=== PATIENT | male | born 1960 | race Caucasian/White ===

== ENCOUNTER 2017-03-03 15:29 | Emergency (ER) | payer SELFPAY ==
[2017-03-03 18:03] LABS: Basophils % (Auto) 0.6 % (0.0-1.8); Eosinophils % (Auto) 1.6 % (0.0-4.3); Hematocrit 41.2 % (35.5-45.6); Hemoglobin 13.6 gm/dl (11.8-15.2); Mean Corpuscular HGB Conc 33 % (32-34); Mean Corpuscular Hemoglobin 29 pg (28-32); Mean Corpuscular Volume 86 fl (84-94); Platelet Count 157 K/mm3 (140-440); Red Blood Count 4.78 M/mm3 (3.65-5.03); Red Cell Distribution Width 16.1 % (13.2-15.2)
[2017-03-03 18:13] LABS: INR 2.37 (0.87-1.13)
[2017-03-03 18:14] LABS: Partial Thromboplastin Time 41.3 Sec. (24.2-36.6)
--- NOTE | 2017-03-03 18:56 | Emergency Department Report ---
Entered by RASHEEDA GILLESPIE, acting as scribe for JOSE L ZAMAN PA. Chief Complaint: Extremity Injury, Lower Stated Complaint: LEFT FOOT SWELLING Time Seen by Provider: 03/03/17 16:58 - HPI History of Present Illness: 57 y/o male with PMHx of DM, HTN, and bilateral DVT, presents to the ED c/o left foot and ankle swelling beginning 3 days ago. The swelling has improved since the initial onset. Associated symptoms of SOB 3 days ago that has since resolved, but he denies nausea and vomiting. The patient was seen at [facility] last month for DVT and PE and was prescribed coumadin. Patient is compliant with coumadin, HTN, and DM medications. Patient states he took his morning dosage of HTN medication but has not taken his afternoon dosage. No other complaints. - ROS Review of Systems: Musculoskeletal/Extremities: Positive for Left lower extremity swelling and pain RESP: positive for SOB 3 days ago that has since resolved ABD: negative for nausea, vomiting SKIN: Positive for swelling of the left foot and left lower extremity All other systems reviewed and negative - Exam Vital Signs: Vital Signs 03/03/17 15:57 Temperature 98.4 F Pulse Rate 84 Respiratory 20 Rate Blood Pressure 155/107 O2 Sat by Pulse 97 Oximetry Physical Exam: Constitutional: Non toxic appearing, NAD. Cardiovascular: Normal rate and rhythm with normal S1/S2 sounds. 3+ edema to the left lower extremity. Respiratory: No respiratory distress. Lung sounds clear to auscultation bilaterally. Musculoskeletal/Extremities: left lower extremity is hard and taut. No calf tenderness. 2+ left DP. Left Foot had 3+ pitting edema MSE screening note: Focused history and physical exam performed. Due to findings the following was ordered: ED Medical Decision Making - Medical Decision Making alert and oriented x3. LE US ordered. Patient will be seen by ED physician. Patient is in no acute distress, stable. ED Disposition for MSE Condition: Stable Referrals: PRIMARY CARE,MD [Primary Care Provider] - 3-5 Days This documentation as recorded by the scribe,RASHEEDA GILLESPIE,accurately reflects the service I personally performed and the decisions made by AUSTYN nunez OYINLOLA A, PA.
[2017-03-04] MEDS ORDERED: TYLENOL #3 PO ONE (00:20)
--- NOTE | 2017-03-04 00:22 | Emergency Department Report ---
ED General Adult HPI - General Chief complaint: Extremity Injury, Lower Stated complaint: LEFT FOOT SWELLING Time Seen by Provider: 03/03/17 17:18 Source: patient, RN notes reviewed, old records reviewed Mode of arrival: Ambulatory Limitations: No Limitations - History of Present Illness Initial comments: This is a 57-year-old male. He is previously unknown to me. His primary care doctor is Dr. Dukes The patient has a past medical history of DVT, for which he takes Coumadin therapy. The DVT was diagnosed last month at [facility] Patient had a CT scan of the chest performed on February 04, which was negative for pulmonary embolus. The patient also had a 2-D echocardiogram performed, which demonstrated normal left ventricular function, ejection fraction at 55%. The patient is also known to have a left lower extremity DVT, and is currently on Coumadin therapy. The patient presents to the ER complaining of left leg pain and swelling. Has been going on for the past 3 days. There is no tingling, numbness or weakness. There is no hematemesis or bright red blood per rectum. The patient on review of systems admitted to slight chest pain and shortness of breath this past Thursday. It lasted for a few seconds and has since resolved. There is no vomiting or diaphoresis. . -: Gradual Location: left, lower extremity Quality: aching Consistency: intermittent Improves with: rest Worsens with: movement Associated Symptoms: chest pain, shortness of breath - Related Data Previous Rx's Medication Instructions Recorded Last Taken Type Atorvastatin [Lipitor] 40 mg PO QHS #30 tablet 03/30/14 Unknown Rx Hydralazine HCl [hydrALAZINE] 50 mg PO TID #90 tablet 03/30/14 Unknown Rx Losartan/Hydrochlorothiazide 1 each PO QDAY #30 tablet 03/30/14 Unknown Rx [Hyzaar 100-25 TAB] Metoprolol [Lopressor TAB] 100 mg PO BID #60 tablet 03/30/14 Unknown Rx Rosuvastatin (Nf) [Crestor] 20 mg PO QHS #30 tablet 03/30/14 Unknown Rx amLODIPine [Norvasc] 10 mg PO QDAY #30 tablet 03/30/14 Unknown Rx Cyclobenzaprine [Flexeril 10mg] 10 mg PO TID PRN #15 tablet 03/22/15 Unknown Rx HYDROcodone/APAP 5-325 [Serafina 1 each PO Q6HR PRN #20 tablet 03/22/15 Unknown Rx 5/325] Allergies Allergy/AdvReac Type Severity Reaction Status Date / Time No Known Allergies Allergy Verified 03/22/15 15:15 ED Review of Systems ROS: Stated complaint: LEFT FOOT SWELLING Other details as noted in HPI Constitutional: denies: fever Eyes: denies: vision change ENT: denies: epistaxis Respiratory: shortness of breath (now resolved) Cardiovascular: chest pain Gastrointestinal: denies: abdominal pain, melena, hematochezia Musculoskeletal: arthralgia Skin: as per HPI Neurological: as per HPI ED Past Medical Hx - Past Medical History Previous Medical History?: Yes Hx Hypertension: Yes Hx Congestive Heart Failure: No Hx Diabetes: No Hx Asthma: No Hx COPD: No Hx HIV: No Additional medical history: DVT - Surgical History Past Surgical History?: No - Social History Smoking Status: Former Smoker Substance Use Type: Alcohol, Prescribed - Medications Home Medications: Home Medications Medication Instructions Recorded Confirmed Last Taken Type Atorvastatin [Lipitor] 40 mg PO QHS #30 tablet 03/30/14 Unknown Rx Hydralazine HCl [hydrALAZINE] 50 mg PO TID #90 tablet 03/30/14 Unknown Rx Losartan/Hydrochlorothiazide 1 each PO QDAY #30 tablet 03/30/14 Unknown Rx [Hyzaar 100-25 TAB] Metoprolol [Lopressor TAB] 100 mg PO BID #60 tablet 03/30/14 Unknown Rx Rosuvastatin (Nf) [Crestor] 20 mg PO QHS #30 tablet 03/30/14 Unknown Rx amLODIPine [Norvasc] 10 mg PO QDAY #30 tablet 03/30/14 Unknown Rx Cyclobenzaprine [Flexeril 10mg] 10 mg PO TID PRN #15 tablet 03/22/15 Unknown Rx HYDROcodone/APAP 5-325 [Serafina 1 each PO Q6HR PRN #20 tablet 03/22/15 Unknown Rx 5/325] ED Physical Exam - General Limitations: No Limitations General appearance: alert, in no apparent distress - Head Head exam: Present: atraumatic, normocephalic - Eye Eye exam: Present: normal appearance, EOMI. Absent: nystagmus - ENT ENT exam: Present: normal exam, normal orophraynx, mucous membranes moist, normal external ear exam - Neck Neck exam: Present: normal inspection, full ROM. Absent: tenderness, meningismus - Respiratory Respiratory exam: Present: normal lung sounds bilaterally. Absent: respiratory distress, wheezes, rales, rhonchi, stridor, chest wall tenderness, accessory muscle use, decreased breath sounds, prolonged expiratory - Cardiovascular Cardiovascular Exam: Present: regular rate, normal rhythm, normal heart sounds. Absent: bradycardia, tachycardia, irregular rhythm, systolic murmur, diastolic murmur, rubs, gallop - GI/Abdominal GI/Abdominal exam: Present: soft, normal bowel sounds. Absent: distended, tenderness, guarding, rebound, rigid, pulsatile mass - Rectal Rectal exam: Present: deferred - Extremities Exam Extremities exam: Present: normal inspection, full ROM, normal capillary refill , pedal edema, other (there is left lower extremity swelling. There is 1+ edema. There is no redness, pus or streaking. There is no obvious palpable cord. 2+ pulses are appreciated). Absent: tenderness, calf tenderness - Back Exam Back exam: Present: normal inspection, full ROM. Absent: tenderness, CVA tenderness (R), CVA tenderness (L), muscle spasm, paraspinal tenderness, vertebral tenderness - Neurological Exam Neurological exam: Present: alert, oriented X3, other (Extraocular movements intact. Tongue midline. No facial droop. Facial sensation intact to light touch in the V1, V2, V3 distribution bilaterally. 5 and 5 strength in 4 extremities.. Sensation is intact to light touch in 4 extremities.). Absent: motor sensory deficit - Psychiatric Psychiatric exam: Present: normal affect, normal mood - Skin Skin exam: Present: warm, dry, intact, normal color. Absent: rash ED Course Vital Signs 03/03/17 03/04/17 03/04/17 15:57 00:58 02:29 Temperature 98.4 F Pulse Rate 84 84 88 Respiratory 20 18 14 Rate Blood Pressure 155/107 Blood Pressure 150/100 153/110 [Right] O2 Sat by Pulse 97 97 96 Oximetry 03/04/17 03:51 Temperature Pulse Rate 91 H Respiratory 17 Rate Blood Pressure Blood Pressure 144/103 [Right] O2 Sat by Pulse 95 Oximetry - Reevaluation(s) Reevaluation #1: 03/04/17 01:56 differential diagnosis: Known DVT, natural history of DVT, pneumonia, pulmonary embolus, acute coronary syndrome Assessment and plan: 57-year-old male whose primary complaint is left lower extremity pain and swelling, he has a known history of DVT, his INR is therapeutic, most likely this is a natural history of a DVT. On review of systems, the patient endorsed transient chest pain and shortness of breath 4 days ago. His EKG is morphologically abnormal, troponins are negative 2. I appreciate the patient did complain of nonspecific chest pain and shortness of breath, however, I find the patient's clinical history to be low risk by ABBY score, and low risk by heart score. I think the patient is suitable to follow-up with an outpatient grip assembler for acute coronary syndrome risk stratificaTION. Given the presence of chest pain and shortness of breath that was endorsed, and empiric CT scan of the chest is obtained, and the results are pending. a Reevaluation #2: 03/04/17 03:05 CT scan of the chest is negative for pneumonia and pulmonary embolus. INR is therapeutic. Repeat EKG abnormal, but unchanged from prior, and we are now able to obtain an old EKG from 2013. The poor R-wave progression appears to be unchanged, and the Q waves in the inferior leads appear to be unchanged. There are nonspecific T-wave changes, but given that patient has been chest pain-free and respiratory symptom free for 5 or 6 days, I feel the patient is suitable to follow up with outpatient grip assembler. The patient will be discharged at this time. He is instructed to follow-up with anyone local cardiology group for his abnormal EKG. In addition, the patient did have a negative cardiac catheterization in 2013. 03/04/17 03:07 ED Medical Decision Making - Lab Data Result diagrams: 03/03/17 17:43 03/04/17 00:30 Vital Signs 03/03/17 03/04/17 15:57 00:58 Temperature 98.4 F Pulse Rate 84 84 Respiratory 20 18 Rate Blood Pressure 155/107 Blood Pressure 150/100 [Right] O2 Sat by Pulse 97 97 Oximetry Lab Results 03/03/17 03/03/17 03/04/17 Range/Units 17:43 17:43 00:30 WBC 8.0 (4.5-11.0) K/mm3 RBC 4.78 (3.65-5.03) M/mm3 Hgb 13.6 (11.8-15.2) gm/dl Hct 41.2 (35.5-45.6) % MCV 86 (84-94) fl MCH 29 (28-32) pg MCHC 33 (32-34) % RDW 16.1 H (13.2-15.2) % Plt Count 157 (140-440) K/mm3 Lymph % (Auto) 28.6 (13.4-35.0) % [place] % (Auto) 10.9 H (0.0-7.3) % Eos % (Auto) 1.6 (0.0-4.3) % Baso % (Auto) 0.6 (0.0-1.8) % Lymph # 2.3 (1.2-5.4) K/mm3 [place] # 0.9 H (0.0-0.8) K/mm3 Eos # 0.1 (0.0-0.4) K/mm3 Baso # 0.0 (0.0-0.1) K/mm3 Seg Neutrophils % 58.3 (40.0-70.0) % Seg Neutrophils # 4.7 (1.8-7.7) K/mm3 PT 26.0 H (12.2-14.9) Sec. INR 2.37 H (0.87-1.13) APTT 41.3 H (24.2-36.6) Sec. Sodium 137 (137-145) mmol/L Potassium 3.4 L (3.6-5.0) mmol/L Chloride 97.4 L (98-107) mmol/L Carbon Dioxide 27 (22-30) mmol/L Anion Gap 16 mmol/L BUN 14 (9-20) mg/dL Creatinine 1.0 (0.8-1.5) mg/dL Estimated GFR > 60 ml/min BUN/Creatinine Ratio 14.00 % Glucose 284 H (75-100) mg/dL Calcium 9.2 (8.4-10.2) mg/dL Troponin T < 0.010 (0.00-0.029) ng/mL - EKG Data -: EKG Interpreted by [place] EKG shows normal: sinus rhythm, axis, intervals, QRS complexes, ST-T waves Rate: normal - EKG Data When compared to previous EKG there are: previous EKG unavailable 03/04/17 01:58 normal sinus, 80 beats per minute, Q waves noted in the inferior leads, poor over progression, abnormal EKG, not morphologically consistent with STEMI, normal intervals, normal axis. - Radiology Data Radiology results: pending, report reviewed, image reviewed Critical care attestation.: If time is entered above; I have spent that time in minutes in the direct care of this critically ill patient, excluding procedure time. ED Disposition Clinical Impression: Abnormal EKG, History of DVT (deep vein thrombosis) Disposition: TO HOME OR SELFCARE Is pt being admited?: No Does the pt Need Aspirin: No Condition: Stable Instructions: Deep Venous Thrombosis (ED) Additional Instructions: Continue current outpatient medications. Follow up with any of the listed regulatory specialist within the next 3-5 days. Return to the ER right away with new pain, worsened pain, migration of pain, fevers, chills, shortness of breath, vomiting blood, confusion, inability to tolerate liquid feeds, new, worsening or different symptoms. Referrals: PRIMARY CARE, [Primary Care Provider] - 3-5 Days JORGE CORRAL MD [Staff Physician] - 3-5 Days JAZMIN KAUR MD [Staff Physician] - 3-5 Days
[2017-03-04 01:15] LABS: Anion Gap 16 mmol/L; Blood Urea Nitrogen 14 mg/dL (9-20); Calcium 9.2 mg/dL (8.4-10.2); Carbon Dioxide 27 mmol/L (22-30); Chloride 97.4 mmol/L (98-107); Glucose 284 mg/dL (75-100); Potassium 3.4 mmol/L (3.6-5.0); Sodium 137 mmol/L (137-145)
[2017-03-04] MEDS ORDERED: NACL ONE (01:19)
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
[2017-03-04 03:51] VITALS: BP 144/103
== END 2017-03-04 03:51 | disposition home or self-care (01) ==
LOC: ED 15:29
DX: M79.672 Pain in left foot (principal); I82.4Z2 Acute embolism and thrombosis of unspecified deep veins of left distal lower extremity; R94.31 Abnormal electrocardiogram [ECG] [EKG]; I10 Essential (primary) hypertension; Z87.891 Personal history of nicotine dependence
CPT/HCPCS: 36415; 71275; 80048; 83880; 84484; 85025; 85610; 85730; 93005; 93010; 99285; Q9967

== ENCOUNTER 2018-11-04 15:07 | Emergency (ER) | payer OTHER ==
[2018-11-04 15:13] VITALS: BP 152/87
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
[2018-11-04] MEDS ORDERED: TYLENOL PO ONE (17:12)
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
== END 2018-11-04 19:50 | disposition home or self-care (01) ==
LOC: ED 15:07
DX: S00.93XA Contusion of unspecified part of head, initial encounter (principal); S13.4XXA Sprain of ligaments of cervical spine, initial encounter; S39.012A Strain of muscle, fascia and tendon of lower back, initial encounter; I10 Essential (primary) hypertension; Z88.8 Allergy status to other drugs, medicaments and biological substances; V89.2XXA Person injured in unspecified motor-vehicle accident, traffic, initial encounter; Y93.89 Activity, other specified; Y92.488 Other paved roadways as the place of occurrence of the external cause; Y99.8 Other external cause status
CPT/HCPCS: 70450; 72040; 72100; 82962; 99284